=== PATIENT | male | born 1960 | race Two or more races ===

== ENCOUNTER 2016-12-16 08:28 | Emergency (ER) | payer SELFPAY ==
[~2016-12-16] VITALS: Ht 172.7 cm; Wt 70.3 kg
--- NOTE | 2016-12-16 09:20 | Emergency Room Report ---
History of Present Illness General Chief Complaint: Abdominal Pain Source: Patient Present Illness HPI Patient reports that he was sleeping outside Yesterday Patient feels that this worsened his symptoms he felt generally weak Denies any chest pain or shortness of breath Patient states that he has liver disease and felt that there was again inflammation of the right upper quadrant Patient feels that his left sciatic pain is also exacerbated After these complaints patient reports that he is taking his Wellbutrin however also concerned about having suicidal thought Patient did not have any specific plans However did mention this Allergies: Coded Allergies: HALOPERIDOL (Verified Allergy, Unknown, 12/16/16) ZIPRASIDONE (Verified Allergy, Unknown, 12/16/16) Patient History Past Medical History: see triage record Pertinent Family History: none Reviewed Nursing Documentation: PMH: Agreed, PSxH: Agreed Nursing Documentation-PMH Past Medical History: No History, Except For Hx Gastrointestinal Problems: Yes - Liver Cirrhosis Review of Systems All Other Systems: negative except mentioned in HPI Physical Exam Vital Signs Date Time Temp Pulse Resp B/P Pulse Ox O2 Delivery O2 Flow Rate FiO2 12/16/16 08:48 97.5 103 18 158/110 97 Room Air Sp02 EP Interpretation: reviewed, normal General Appearance: well appearing, no apparent distress Head: normocephalic, atraumatic Eyes: bilateral eye EOMI, bilateral eye PERRL ENT: hearing grossly normal, normal pharynx, TMs + canals normal, uvula midline Neck: full range of motion, supple, no meningismus, no bony tend Respiratory: lungs clear, normal breath sounds, no rhonchi, no respiratory distress, no retraction, no accessory muscle use Cardiovascular #1: normal peripheral pulses, regular rate, rhythm, no edema, no gallop, no JVD, no murmur Gastrointestinal: normal bowel sounds, non tender, soft, non-distended, no guarding, no hernia, no pulsatile mass, no rebound Genitourinary: no CVA tenderness Musculoskeletal: normal inspection Neurologic: oriented x3, responsive, 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, motor strength/ tone normal, sensory intact Psychiatric: mood/affect normal - However the patient reported, having suicidal thought Skin: normal color, no rash, warm/dry, palpation normal Lymphatic: normal inspection, no adenopathy Medical Decision Making Diagnostic Impression: Primary Impression: Abdominal pain Additional Impression: psychiatric clearance ER Course Given the patient's complaints initial medical evaluation was initiated Blood work reveals very minimal elevation of the AST and ALT Patient requested pain medication for her sciatic pain as well After this, we did contact psychiatrist for evaluation Please refer to her note for full specifics, however the patient was cleared from the psychiatric standpoint And given the medical clearance at this time was cleared for disposition Labs Test 12/16/16 08:55 12/16/16 09:29 Urine Opiates Screen Negative (NEGATIVE) Urine Barbiturates Screen Negative (NEGATIVE) Phencyclidine (PCP) Screen Negative (NEGATIVE) Urine Amphetamines Screen Positive (NEGATIVE) Urine Benzodiazepines Screen Negative (NEGATIVE) Urine Cocaine Screen Negative (NEGATIVE) Urine Marijuana (THC) Screen Negative (NEGATIVE) White Blood Count 10.3 K/UL (4.8-10.8) Red Blood Count 5.63 M/UL (4.70-6.10) Hemoglobin 14.4 G/DL (14.2-18.0) Hematocrit 47.2 % (42.0-52.0) Mean Corpuscular Volume 84 FL (80-99) Mean Corpuscular Hemoglobin 25.6 PG (27.0-31.0) Mean Corpuscular Hemoglobin Concent 30.5 G/DL (32.0-36.0) Red Cell Distribution Width 16.1 % (11.6-14.8) Platelet Count 318 K/UL (150-450) Mean Platelet Volume 7.8 FL (6.5-10.1) Neutrophils (%) (Auto) 78.4 % (45.0-75.0) Lymphocytes (%) (Auto) 13.9 % (20.0-45.0) Monocytes (%) (Auto) 7.0 % (1.0-10.0) Eosinophils (%) (Auto) 0.1 % (0.0-3.0) Basophils (%) (Auto) 0.6 % (0.0-2.0) Sodium Level 137 mEQ/L (135-145) Potassium Level 4.4 mEQ/L (3.4-4.9) Chloride Level 95 mEQ/L (98-107) Carbon Dioxide Level 25 mEQ/L (20-30) Anion Gap 17 (5-15) Blood Urea Nitrogen 14 mg/dL (7-23) Creatinine 1.0 mg/dL (0.7-1.2) Estimat Glomerular Filtration Rate > 60 mL/min (>60) Glucose Level 82 mg/dL (74-106) Calcium Level 9.6 mg/dL (8.6-10.2) Total Bilirubin 0.8 mg/dL (0.0-1.2) Aspartate Amino Transf (AST/SGOT) 67 U/L (5-40) Alanine Aminotransferase (ALT/SGPT) 88 U/L (3-41) Alkaline Phosphatase 61 U/L (40-129) Total Protein 7.8 g/dL (6.6-8.7) Albumin 4.2 g/dL (3.5-5.2) Globulin 3.6 g/dL Albumin/Globulin Ratio 1.1 (1.0-2.7) Salicylates Level < 1 mg/dL (10-30) Acetaminophen Level < 10 ug/mL (10-30) Serum Alcohol < 10 mg/dL Last Vital Signs Date Time Temp Pulse Resp B/P Pulse Ox O2 Delivery O2 Flow Rate FiO2 12/16/16 08:48 97.5 103 18 158/110 97 Room Air Status: improved Disposition: HOME, SELF-CARE Condition: Improved Scripts Famotidine (PEPCID) 40 Mg Tablet 40 MG PO DAILY, #7 TAB 0 Refills Prov: SAMANTHA LEWIS D.O. 12/16/16 Ibuprofen* (MOTRIN*) 600 Mg Tablet 600 MG ORAL Q8H Y for For Pain, #20 TAB 0 Refills Prov: SAMANTHA LEWIS D.O. 12/16/16 Additional Instructions: Patient is provided with the discharge instructions notified to follow up with primary doctor in the next 2-3 days otherwise return to the er with any worsening symptoms. Please note that this report is being documented using [employer] technology. This can lead to erroneous entry secondary to incorrect interpretation by the dictating instrument. SAMANTHA LEWIS D.O. December 16, 2016 09:20
[2016-12-16 10:00] LABS: BASOPHILS % (AUTO) 0.6 % (0.0-2.0); EOSINOPHILS % (AUTO) 0.1 % (0.0-3.0); LYMPHOCYTES % (AUTO) 13.9 % (20.0-45.0); MEAN CORPUSCULAR HEMOGLOBIN 25.6 PG (27.0-31.0); MEAN CORPUSCULAR HGB CONC 30.5 G/DL (32.0-36.0); MEAN CORPUSCULAR VOLUME 84 FL (80-99); MEAN PLATELET VOLUME 7.8 FL (6.5-10.1); NEUTROPHILS % (AUTO) 78.4 % (45.0-75.0); PLATELET COUNT 318 K/UL (150-450); RED BLOOD COUNT 5.63 M/UL (4.70-6.10); RED CELL DISTRIBUTION WIDTH 16.1 % (11.6-14.8); WHITE BLOOD COUNT 10.3 K/UL (4.8-10.8)
[2016-12-16 10:04] LABS: ACETAMINOPHEN < 10 ug/mL (10-30); ALANINE AMINOTRANSFERASE 88 U/L (3-41); ALBUMIN/GLOBULIN RATIO 1.1 (1.0-2.7); ALCOHOL < 10 mg/dL; ANION GAP 17 (5-15); ASPARTATE AMINO TRANSFERASE 67 U/L (5-40); CALCIUM 9.6 mg/dL (8.6-10.2); CARBON DIOXIDE 25 mEQ/L (20-30); CHLORIDE 95 mEQ/L (98-107); GLOMERULAR FILTRATION RATE > 60 mL/min (>60); HEMOLYSIS 4; POTASSIUM 4.4 mEQ/L (3.4-4.9); SODIUM 137 mEQ/L (135-145); TOTAL PROTEIN 7.8 g/dL (6.6-8.7)
[2016-12-16] MEDS ORDERED: PEPCID40 MG PO (11:48)
[2016-12-16] MEDS ORDERED: IBUPROFEN600 MG ORAL (11:48)
[2016-12-16 12:46] VITALS: BP 158/110
--- NOTE | 2016-12-16 22:51 | Consultation ---
History of Present Illness General Chief Complaint: Abdominal Pain Present Illness HPI 56 yo male with hx of alcohol and meth use brought self to er and initially had multiple somatic complaints. the pt reported to Dr. Espinoza that he feels suicidal without any intention or plan. when this examiner went to eval him, he was eating a sandwich and juice. the pt insisted that he is suicidal " I keep taking drugs and alcohol. I am killing myself slowly." the pt c/o depression however his affect was not congruent with his mood. He stated that he has sold all his food stamp and now he doesn't have any money. the pt presentation was not consistent with depressive disorder. His system was positive for meth. the pt was not depressed nor he endorsed any psychotic or manic sxs Allergies: Coded Allergies: HALOPERIDOL (Verified Allergy, Unknown, 12/16/16) ZIPRASIDONE (Verified Allergy, Unknown, 12/16/16) Medication History Scheduled Famotidine (Pepcid), 40 MG PO DAILY Scheduled PRN Ibuprofen* (Motrin*), 600 MG ORAL Q8H PRN for For Pain Patient History History Provided By: Patient, Medical Record, PMD Healthcare decision maker Resuscitation status Advanced Directive on File Past Medical/Surgical History Past Medical/Surgical History: (1) Abdominal pain Review of Systems Constitutional: Reports: weakness Psychiatric: Reports: SI, prior hx Physical Exam General Appearance: no apparent distress, alert Neurologic: alert, oriented x 3, responsive Last 24 Hour Vital Signs Date Time Temp Pulse Resp B/P Pulse Ox O2 Delivery O2 Flow Rate FiO2 12/16/16 12:46 63 16 125/76 99 Room Air 12/16/16 12:46 97.6 18 158/110 97 Room Air 12/16/16 11:22 97.6 12/16/16 08:48 97.5 103 18 158/110 97 Room Air Laboratory Tests Test 12/16/16 08:55 12/16/16 09:29 Urine Opiates Screen Negative (NEGATIVE) Urine Barbiturates Screen Negative (NEGATIVE) Phencyclidine (PCP) Screen Negative (NEGATIVE) Urine Amphetamines Screen Positive (NEGATIVE) H Urine Benzodiazepines Screen Negative (NEGATIVE) Urine Cocaine Screen Negative (NEGATIVE) Urine Marijuana (THC) Screen Negative (NEGATIVE) White Blood Count 10.3 K/UL (4.8-10.8) Red Blood Count 5.63 M/UL (4.70-6.10) Hemoglobin 14.4 G/DL (14.2-18.0) Hematocrit 47.2 % (42.0-52.0) Mean Corpuscular Volume 84 FL (80-99) Mean Corpuscular Hemoglobin 25.6 PG (27.0-31.0) L Mean Corpuscular Hemoglobin Concent 30.5 G/DL (32.0-36.0) L Red Cell Distribution Width 16.1 % (11.6-14.8) H Platelet Count 318 K/UL (150-450) Mean Platelet Volume 7.8 FL (6.5-10.1) Neutrophils (%) (Auto) 78.4 % (45.0-75.0) H Lymphocytes (%) (Auto) 13.9 % (20.0-45.0) L Monocytes (%) (Auto) 7.0 % (1.0-10.0) Eosinophils (%) (Auto) 0.1 % (0.0-3.0) Basophils (%) (Auto) 0.6 % (0.0-2.0) Sodium Level 137 mEQ/L (135-145) Potassium Level 4.4 mEQ/L (3.4-4.9) Chloride Level 95 mEQ/L (98-107) L Carbon Dioxide Level 25 mEQ/L (20-30) Anion Gap 17 (5-15) H Blood Urea Nitrogen 14 mg/dL (7-23) Creatinine 1.0 mg/dL (0.7-1.2) Estimat Glomerular Filtration Rate > 60 mL/min (>60) Glucose Level 82 mg/dL (74-106) Calcium Level 9.6 mg/dL (8.6-10.2) Total Bilirubin 0.8 mg/dL (0.0-1.2) Aspartate Amino Transf (AST/SGOT) 67 U/L (5-40) H Alanine Aminotransferase (ALT/SGPT) 88 U/L (3-41) H Alkaline Phosphatase 61 U/L (40-129) Total Protein 7.8 g/dL (6.6-8.7) Albumin 4.2 g/dL (3.5-5.2) Globulin 3.6 g/dL Albumin/Globulin Ratio 1.1 (1.0-2.7) Salicylates Level < 1 mg/dL (10-30) L Acetaminophen Level < 10 ug/mL (10-30) L Serum Alcohol < 10 mg/dL Height (Feet): 5 Height (Inches): 8.00 Weight (Pounds): 155 Assessment/Plan Status: stable Assessment/Plan alcohol and meth use d/o. the pt is not an imminent dts or dto. He didn't present with depressive sxs. the pt has future oriented thought process. It appears that he came to ER due to lack of finances. The pt has no intention nor a plan to end his life. the pt was told to returned if sxs got worse/ he was encourage to stop using drugs and alcohol. he was told to follow up outpatient psych. Vernon Harley M.D. December 16, 2016 22:51
== END 2016-12-16 12:46 | disposition home or self-care (01) ==
LOC: EMR 08:45
DX: R10.9 Unspecified abdominal pain (principal); K74.60 Unspecified cirrhosis of liver; Z88.8 Allergy status to other drugs, medicaments and biological substances
CPT/HCPCS: 36415; 80053; 80300; 85025; 99284; G0480; 80329